=== PATIENT | male | born 1950 | race Caucasian/White ===

== ENCOUNTER 2020-01-28 11:14 | Observation (INO) | payer MEDICARE, OTHER, SELFPAY ==
[2020-01-28] VITALS (14 sets, daily range): BP systolic 150–175; BP diastolic 71–84; PULSE 67–81; RESP 18–25; TEMP 36.6–36.9; O2SAT 92–98; BMI 28.5; BMI 27.6
--- NOTE | 2020-01-28 11:27 | RAD_ITS ---
STUDY: X-RAY CHEST REASON FOR EXAM: Male, 69 years old. WORSENING DYSPNEA SINCE LAST NIGHT. RECENTLY DISCHARGED FROM [facility] SAME SYMPTOMS. FX RIBS, COPD TECHNIQUE: Single PA view of the chest. COMPARISON: None. FINDINGS: EKG electrodes are seen. There is evidence of vascular congestion and CHF with small bilateral pleural effusions and bibasilar atelectasis. Normal size heart. Normal mediastinum and raisa. Normal visualized pulmonary arteries. There is atherosclerotic calcification of the aortic arch with tortuosity. Normal visualized thoracic spine. Normal visualized ribs, clavicles, and shoulders. There is no demonstrated abnormality of the visualized soft tissue structures of the upper abdomen. RAD/Chest 1 View (Portable) IMPRESSION: Findings in keeping with a mild degree of CHF with small bilateral effusions and bibasilar atelectasis. Electronically Signed: Tc Andujar, at 11:57 EDT , Service support ,
--- NOTE | 2020-01-28 11:27 | EKG12_ITS ---
Test Reason : SOB Blood Pressure : / mmHG Vent. Rate : 072 BPM Atrial Rate : 072 BPM P-R Int : 158 ms QRS Dur : 110 ms QT Int : 474 ms P-R-T Axes : 034 005 094 degrees QTc Int : 519 ms Normal sinus rhythm Incomplete left bundle branch block Nonspecific T wave abnormality Prolonged QT Abnormal ECG Confirmed by ELIZABETH VEGA, BARBARA ([id number]), photography editor INOCENCIO IRVING ([id number]) on 02/03/2020 9:11:00 AM Referred By: NEY Confirmed By:CLARENCE JOHNSON MD
--- NOTE | 2020-01-28 11:30 | ED.DCSUM_ITS ---
History of Present Illness Chief Complaint: Shortness of Breath Informant: Patient Onset: Yesterday Current Severity: Mild Maximum Severity: Moderate Narrative: Patient presents via EMS secondary to increased shortness of breath. Patient was discharged from the [facility] 5 days ago after a 1 week stay with broken ribs. He believes he had 3 broken ribs on the left side. He sustained these from falling while getting out of the shower. Patient is currently on Tylenol for pain. He does not wear home oxygen. He states last evening he had increased pain and increased shortness of breath. He went outside to breathe the cool air that seemed to help his symptoms somewhat. He called EMS today when symptoms were not quite back to baseline. He is on dialysis, Sunday, Sunday, and Sunday. He states that he had a full run on Sunday and was on his way to dialysis today. - Past Medical History (1) Dementia Status: Chronic (2) CHF (congestive heart failure) Status: Chronic (3) Hypertension Status: Chronic (4) High cholesterol Status: Chronic (5) H/O heart artery stent Status: Chronic (6) Asthma Status: Chronic (7) Diabetes Status: Chronic (8) Anxiety and depression Status: Chronic (9) Chronic renal failure Status: Chronic (10) Dialysis patient Status: Chronic Past Medical History - Allergies and Home Meds Allergies/Adverse Reactions: Allergies adhesive tape Allergy (Verified 01/28/20 11:18) Rash gabapentin Allergy (Verified 01/28/20 11:18) COULDN'T FUNCTION latex Allergy (Verified 01/28/20 11:18) Rash lisinopril Allergy (Verified 01/28/20 11:18) Anaphylaxis Sulfa (Sulfonamide Antibiotics) Allergy (Verified 01/28/20 11:18) Rash hydrocodone Adverse Reaction (Verified 01/28/20 11:18) Itching niacin Adverse Reaction (Verified 01/28/20 11:18) Itching Primary Care Physician: Sunita Doctor,Out of [NON-STAFF] - Doctors: Nephrology - Dr Deal at [facility] Prior records reviewed: Yes Smoking Status: Former smoker Review of Systems General: Denies: Chills, Fever Eyes: Denies: Visual changes - bilaterally ENT: Denies: Bilateral ear pain Cardiovascular: Reports: Chest pain - Rib pain Respiratory: Reports: Dyspnea, Cough - Minimal cough Gastrointestinal: Denies: Abdominal pain, Nausea, Vomiting, Diarrhea Genitourinary: Denies: Dysuria Musculoskeletal: Reports: Swelling. Denies: Extremity Pain Skin: Denies: Rash Neurological: Denies: Headache Hematologic: Denies: Easy bruising Allergy: Denies: Uticaria Physical Exam Vital Signs/Narrative: Vital Signs Temp Pulse Resp Pulse Ox 01/28/20 11:19 98 01/28/20 11:15 98.4 F 81 25 H 93 Inital Vital Signs reviewed: Yes General: Well nourished, Well developed Head: Normocephalic ENT: Moist mucous membranes Neck: Supple Cardiovascular: Regular rate, Regular rhythm Respiratory: No distress, - - Lung sounds slightly diminished to left base. I do appreciate breath sounds. No crepitus is noted. Abdomen: Soft, Nontender Extremities: Edema - 2-3+ bilateral lower extremity edema, symmetric Skin: Normal color Neurological: Alert, Oriented x3 Psychological: Normal affect Diagnostic/Tx/Re-eval Impressions Chest X-Ray 01/28/20 11:27 IMPRESSION: Findings in keeping with a mild degree of CHF with small bilateral effusions and bibasilar atelectasis. Electronically Signed: Tc Con, at 11:57 EDT , Service support , 01/28/20 11:27 Chest 1 View (Portable) [RAD] Stat Laboratory Results 01/28/20 01/28/20 01/28/20 11:22 11:22 11:22 WBC 6.6 RBC 2.64 L Hgb 8.2 L Hct 25.6 L MCV 97.0 H MCH 31.1 MCHC 32.0 RDW Std Deviation 53.2 H RDW Coeff of Donal 14.9 H Plt Count 206 MPV 10.7 Immature Gran % (Auto) 0.500 Neut % (Auto) 73.3 H Lymph % (Auto) 11.7 L [place] % (Auto) 8.7 Eos % (Auto) 4.4 Baso % (Auto) 1.4 H Absolute Neuts (auto) 4.9 Absolute Lymphs (auto) 0.78 L Nucleated RBC % 0 PT 14.9 INR 1.2 APTT 32.5 Sodium 135 L Potassium 4.6 Chloride 100 Carbon Dioxide 29.0 Anion Gap 6 BUN 29 H Creatinine 6.19 H Estim Creat Clear Calc 9.56 Est GFR (MDRD) Af Amer 12 L Est GFR (MDRD) Non-Af 10 L BUN/Creatinine Ratio 4.7 L Glucose 208 H Calcium 8.8 - EKG Initial EKG Interpretation: Sinus Rhythm - Sinus at 72 with incomplete left bundle branch block. He has mild lateral ST depression that appears stable when compared to September 2016. - Medical Decision Making Blood work does reveal anemia with worse than baseline renal function. My suspicion is that this is secondary to fluid overload as he was due for dialysis today. Patient was ambulated and O2 sat did drop to 86% on room air. Social work is working with the porter sample case through [place] to arrange home oxygen for him. At this time I do not have any criteria to admit him to the hospital. states that she would want him at home and not sent to a correction for rehab. ED Disposition - Plan for ED Patient: Disposition: Home or Assisted Living Diagnosis: Dyspnea Instructions: ED Dyspnea Referrals: [facility] Doctor,Out of [NON-STAFF] -
[2020-01-28 11:36] LABS: Absolute Lymphocyte Count 0.78 X10^3/uL (0.83-4.51); Absolute Neutrophil Count 4.9 X10^3/uL (2.0-7.7); Basophil# 0.09 X10^3/uL; Basophil% 1.4 % (0-1); Eosinophil# 0.29 X10^3/uL; Eosinophils% 4.4 % (0-5); Hematocrit 25.6 % (40-54); Hemoglobin 8.2 g/dL (13.0-16.5); Lymphocyte # 0.78 X10^3/ul (4.0); Lymphocyte % 11.7 % (19-41); Mean Corpuscular Hgb 31.1 pg (27.0-32.0); Mean Platelet Vol. 10.7 fl (6.2-12.0); Monocyte# 0.58 X10^3/uL; Monocyte% 8.7 % (0-10); NRBC Flagged by Analyzer 0 % (0-5); Neutrophil # 4.87 X10^3/uL (2.7-7.7); Neutrophil % 73.3 % (47-70); Platelet Count 206 K/mm3 (150-450); RBC Distribution Width CV 14.9 % (11.6-14.6); RBC Distribution Width SD 53.2 fl (35.1-43.9); Red Blood Count 2.64 M/mm3 (4.6-6.2); White Blood Count 6.6 K/mm3 (4.4-11.0)
[2020-01-28 11:43] LABS: International Normalized Ratio 1.2; Prothrombin Time (Protime)PT. 14.9 SECONDS (11.7-14.9)
[2020-01-28 11:44] LABS: Partial Thromboplast Time 32.5 Seconds (24.1-36.2)
[2020-01-28 11:49] LABS: Anion Gap 6 (5-15); BUN 29 mg/dL (7-18); BUN/Creat Ratio 4.7 RATIO (10-20); Calcium,Total 8.8 mg/dL (8.5-10.1); Chloride 100 mmol/L (98-107); Creatinine, Serum 6.19 mg/dL (0.70-1.30); EST Glomerular Filtration Rate 10 mL/min (>60); Est Glom Filt Rate - Afr Amer 12 mL/min (>60); Estimated Creatinine Clearance 9.56 ml/min; Glucose 208 mg/dL (74-106); Potassium 4.6 mmol/L (3.5-5.1); Sodium Level 135 mmol/L (136-145)
--- NOTE | 2020-01-28 13:13 | ED.RN ---
SPOKE TO Damian JOHNSTON'S PER PHONE CALL. STATES PT HAS HAD 3 FALLS IN PAST 24 HRS, ALSO MORE DYSPNEA THAT BASELINE. STATES SHE HAS HOME HEALTH IN PLACE BUT THEY CAN'T COME OUT BECAUSE OF THE [place] VIRUS. REQUESTS HOME O2, STATES PT BECOMES SHORT OF BREATH WITH ANY EXERTION, FEELS THIS CONTRIBUTES TO FALLS. AWARE.
--- NOTE | 2020-01-28 14:00 | CM.ED ---
SOCIAL WORK INFORMANT: DR. BREWSTER REASON FOR REFERRAL: OXYGEN SET UP SPOKE WITH PATIENT AND . WANTING PATIENT TESTED FOR HOME OXYGEN SHE REPORTS PATIENT'S O2 DROPS TO THE LOW 80'S WITH AMBULATION. PROVIDED THIS WORKER WITH CORE FINISHER THROUGH [facility]'S CONTACT INFORMATION- CLARISSA [phone]. COLLABORATION WITH DR. BREWSTER AND NURSE, ZION. ZION TO COMPLETE O2 TESTING. CALL TO PATIENT'S [facility] AERONAUTICAL PROJECT ENGINEER, CLARISSA. UPDATED ON PATIENT'S ED VISIT AND POSSIBLE HOME O2 NEEDS. CLARISSA REPORTS WILL BE IN CONTACT WITH THIS WORKER AND WILL UPDATE O2 [facility] COORDINATOR. AWAITING CALL BACK AT THIS TIME. Delicia FARIAS, CHILD CARE COOK, DESIGNATED BROKER.
--- NOTE | 2020-01-28 14:25 | CM.ED ---
SOCIAL WORK RECEIVED CALL FROM JANUARY, [place] O2 COORDINATOR. PER JANUARY, WILL FAX OVER VA O2 AGREEMENT FOR TEMPORARY SCRIPT. JANUARY STATES SHOULD RECEIVE FORM IN 10 MINUTES. REQUESTING FORM BE COMPLETED AND FAXED BACK. Delicia FARIAS MSW, SENIOR VICE PRESIDENT.
--- NOTE | 2020-01-28 14:56 | CM.ED ---
SOCIAL WORK VA O2 FORMS HAVE NOT BEEN RECEIVED. CALL TO VA O2 COORDINATOR, VARUN [id number]. LEFT VOICEMAIL. AWAITING CALL BACK. Delicia FARIAS, SCORER HELPER, SEARCH ENGINE OPTIMIZATION SPECIALIST.
--- NOTE | 2020-01-28 15:32 | ED.RN ---
PT AMBULATED ON 2L O2, SPO2 93% DURING AMBULATION
--- NOTE | 2020-01-28 15:35 | CM.ED ---
SOCIAL WORK O2 FORMS FOR THE [facility] RECEIVED, COMPLETED, SIGNED BY PATIENT AND FAXED BACK TO VARUN AT THE [facility]. Delicia FARIAS MSW, MUTUAL FUND ANALYST.
--- NOTE | 2020-01-28 16:12 | NURSING ---
CALLED [facility]EN[facility], TALKED TO ALLA. HE WILL FORWARD THE INFO TO THE BED COORDINATOR.
--- NOTE | 2020-01-28 16:42 | ED.RN ---
PER PHONE CALL FROM JEAN PIERRE AT [facility], [place] TO ADMIT PT TO [facility] FOR OBSERVATION.
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
--- NOTE | 2020-01-28 16:56 | NURSING ---
PCU OBS ASHELFAH DYSPNEA, HYPOXIA
--- NOTE | 2020-01-28 16:57 | CM.ED ---
SOCIAL WORK RECEIVED CALL BACK FROM [facility] [place]. PER [place] POLICY WITH O2 VENDOR- [facility] ALL O2 NEEDS MUST BE SUBMITTED BEFORE 2PM. WILL BE UNABLE TO SET UP HOME O2 THIS DAY. [place] WILL NOT COVER ANOTHER VENDOR. UPDATED DR. BYRNE. PATIENT TO BE ADMITTED OBSERVATION. THIS WORKER COORDINATED WITH [facility] [place] AND [place] O2 COORDINATORS TO HAVE PORTABLE TANK DELIVERED TO HOSPITAL TOMORROW. WAS UPDATED BY NURSING AND INFORMED NURSE SHE HAS BEEN CONTACTED BY [facility] AND HOME O2 TO BE SET UP TOMORROW BEFORE NOON. CALL TO JANUARY ([phone] [phone]) AND PROVIDED CONTACT NUMBER FOR PCU AND REQUESTED UNIT BE CONTACTED TOMORROW TO UPDATE WHEN PORTABLE TANK WILL BE DELIVERED. Delicia FARIAS, RESEARCH PROGRAM INTERN, SALES OFFICE ADMINISTRATOR.
--- NOTE | 2020-01-28 17:04 | NURSING ---
1640 FAXED CHART TO JACKELINE SAENZ IT WENT THROUGH
--- NOTE | 2020-01-28 17:13 | ED.RN ---
PCU NOTIFIED PT MISSED DIALYSIS TODAY.
[2020-01-28] MEDS: Furosemide 100 MG/10 ML Vial 60 MG IV (18:12)
[2020-01-28] MEDS: 0.9% Saline Lock 10 ML Syringe IV (18:12)
[2020-01-28 18:21] LABS: Bedside Glucose 206 mg/dL (70-110)
[2020-01-28] MEDS: Epoetin Alfa epbx 10,000 UNITS/ML 6000 UNIT IV (20:21)
[2020-01-28] MEDS: MELATONIN 3 MG TABLET PO (21:54)
[2020-01-28] MEDS: Atorvastatin Calcium 80 MG Tablet PO (21:54)
[2020-01-28] MEDS: Docusate Sodium 100 MG Capsule PO (21:54)
[2020-01-28] MEDS: Insulin Lispro 100 UNIT/ML INSULN.PEN SC (21:55)
[2020-01-28] MEDS: Heparin Injection (Vial) 5,000 UNIT/ML VIAL 5000 UNIT SC (21:55)
[2020-01-28] MEDS: Memantine Hydrochloride 10 MG Tablet PO (22:04)
[2020-01-28 22:11] LABS: Bedside Glucose 173 mg/dL (70-110)
[2020-01-29 02:58] VITALS: PULSE 78
[2020-01-29 05:30] VITALS: BP 176/82; PULSE 75; RESP 18; TEMP 36.6; O2SAT 95
[2020-01-29] MEDS: Carvedilol 25 MG Tablet PO (05:44)
[2020-01-29] MEDS: Acetaminophen 325 MG Tablet 650 MG PO (05:44)
[2020-01-29 05:45] VITALS: O2SAT 87
[2020-01-29 06:06] LABS: Absolute Lymphocyte Count 0.92 X10^3/uL (0.83-4.51); Absolute Neutrophil Count 4.6 X10^3/uL (2.0-7.7); Basophil# 0.08 X10^3/uL; Basophil% 1.2 % (0-1); Eosinophil# 0.39 X10^3/uL; Eosinophils% 5.8 % (0-5); Hematocrit 25.9 % (40-54); Hemoglobin 8.3 g/dL (13.0-16.5); Lymphocyte # 0.92 X10^3/ul (4.0); Lymphocyte % 13.6 % (19-41); Mean Corpuscular Hgb 30.9 pg (27.0-32.0); Mean Corpuscular Volume 96.3 fL (80-94); Mean Platelet Vol. 10.8 fl (6.2-12.0); Monocyte# 0.69 X10^3/uL; Monocyte% 10.2 % (0-10); NRBC Flagged by Analyzer 0 % (0-5); Neutrophil # 4.64 X10^3/uL (2.7-7.7); Neutrophil % 68.8 % (47-70); Platelet Count 209 K/mm3 (150-450); RBC Distribution Width CV 14.7 % (11.6-14.6); RBC Distribution Width SD 51.4 fl (35.1-43.9); Red Blood Count 2.69 M/mm3 (4.6-6.2); White Blood Count 6.8 K/mm3 (4.4-11.0)
[2020-01-29 06:28] LABS: Anion Gap 8 (5-15); BUN 18 mg/dL (7-18); BUN/Creat Ratio 4.4 RATIO (10-20); Calcium,Total 8.1 mg/dL (8.5-10.1); Chloride 97 mmol/L (98-107); Creatinine, Serum 4.08 mg/dL (0.70-1.30); EST Glomerular Filtration Rate 16 mL/min (>60); Est Glom Filt Rate - Afr Amer 19 mL/min (>60); Estimated Creatinine Clearance 14.51 ml/min; Glucose 166 mg/dL (74-106); Potassium 3.5 mmol/L (3.5-5.1); Sodium Level 134 mmol/L (136-145)
[2020-01-29] MEDS: Insulin Lispro 100 UNIT/ML INSULN.PEN SC ×2 (06:46→12:12)
[2020-01-29 06:51] LABS: Bedside Glucose 159 mg/dL (70-110)
[2020-01-29 07:28] VITALS: O2SAT 95
[2020-01-29] MEDS: Aspirin E.C. 81 MG Tablet PO (07:51)
[2020-01-29 08:00] VITALS: PULSE 75
[2020-01-29] MEDS: SEVELAMER CARBONATE 800 MG TABLET PO ×2 (08:11→13:55)
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
--- NOTE | 2020-01-29 09:05 | CASEMGMT ---
Call to Martha at [facility] and she states that everything is set up for pt to get oxygen today and states she has all the paperwork that she needs and states everything has been faxed to [facility]. Call to [facility] and they state that delivery for portable tank is set up for between [phone] today. Charge nurse and physician updated at this time, voice understanding. Arturo VILLELA CM
--- NOTE | 2020-01-29 09:54 | DCINST_ITS ---
- Discharge Diagnoses Current Active Problems: Current Active and Chronic Problems Hyperlipidemia (Chronic) Coronary artery disease (Chronic) Chronic diastolic CHF (congestive heart failure) (Chronic) End stage renal disease on dialysis (Chronic) Type 2 diabetes mellitus (Chronic) You will use the following diet at home:: Cardiac - 2-3 g sodium / day, 1800 cc fluid / day., Renal (restricted protein/sodium) Your food should be the consistency of: Regular Your liquids should be the consistency of: Regular/Thin Discharge Activity: Return to Normal Activity Instructions: ED Dyspnea Allergies/Adverse Reactions: Allergies adhesive tape Allergy (Verified 01/28/20 11:18) Rash gabapentin Allergy (Verified 01/28/20 11:18) COULDN'T FUNCTION latex Allergy (Verified 01/28/20 11:18) Rash lisinopril Allergy (Verified 01/28/20 11:18) Anaphylaxis Sulfa (Sulfonamide Antibiotics) Allergy (Verified 01/28/20 11:18) Rash hydrocodone Adverse Reaction (Verified 01/28/20 11:18) Itching niacin Adverse Reaction (Verified 01/28/20 11:18) Itching Medications to take at Discharge Aspirin E.C. [Ecotrin] 81 mg PO DAILY@0800 10/06/15 Atorvastatin Calcium [Lipitor] 80 mg PO QHS 10/06/15 Carvedilol [Coreg (Beta Addie)] 25 mg PO BIDAC 10/06/15 Finasteride [Proscar] 5 mg PO DAILY 10/06/15 Fluoxetine [Prozac] 60 mg PO DAILY 10/06/15 Insulin Glargine,Hum.rec.anlog [Lantus] 10 unit SC QHS 10/06/15 Multivitamin [Daily Multiple Vitamin] 1 each PO DAILY 10/06/15 Nitroglycerin (INPATIENT USE) [Nitrostat] 0.4 mg SUBLINGUAL Q5M PRN 10/06/15 Docusate Sodium [Colace] 100 mg PO BID 05/16/16 Isosorbide Mononitrate [Imdur] 120 mg PO DAILY 05/16/16 Omeprazole [Prilosec] 30 mg PO DAILY 05/16/16 Cholecalciferol (VIT D3) [Vitamin D3] 1,000 unit PO DAILY 08/04/16 Amlodipine [Norvasc] 5 mg PO DAILY 01/28/20 Bupropion HCl [Wellbutrin Sr] 100 mg PO DAILY 01/28/20 Diclofenac/Silicone, Adhesive [Solaravix 3% Gel Kit] 1 ea TP BID 01/28/20 Fluticasone Propionate [24 Hour Allergy] 1 spr NASAL DAILY 01/28/20 Insulin Regular, Human [Novolin R] See Protocol SQ TID 01/28/20 Loratadine [Claritin] 10 mg PO QODAY 01/28/20 Losartan Potassium 100 mg PO DAILY 01/28/20 Melatonin 3 mg PO QHS 01/28/20 Memantine HCl 10 mg PO BID 01/28/20 Sevelamer Carbonate [Renvela] 800 mg PO ACHS 01/28/20 Primary Care Physician: [facility] Doctor,Out of [NON-STAFF] - Please follow up with your Primary Care Physician in: 1-2 weeks Test Results: Test results from this visit will be discussed in further detail at your follow- up appointment, if applicable. Please Follow Up With: Dialysis, prior When: keep prior schedule. Proposed Discharge Date: 01/29/20
[2020-01-29] MEDS: Loratadine 10 MG Tablet PO (10:24)
[2020-01-29] MEDS: Docusate Sodium 100 MG Capsule PO (10:24)
[2020-01-29] MEDS: Losartan Potassium 100 MG Tablet PO (10:25)
[2020-01-29] MEDS: Pantoprazole Sodium 40 MG Tablet PO (10:26)
[2020-01-29] MEDS: Memantine Hydrochloride 10 MG Tablet PO (10:26)
[2020-01-29] MEDS: amLODIPine 5 MG Tablet PO (10:26)
[2020-01-29] MEDS: Finasteride 5 MG Tablet PO (10:26)
[2020-01-29] MEDS: buPROPion (SR) 100 MG TABLET.SA PO (10:27)
[2020-01-29] MEDS: FLUoxetine 20 MG Capsule 60 MG PO (10:27)
[2020-01-29] MEDS: Glucerna Shake 120 ML LIQUID PO (10:32)
--- NOTE | 2020-01-29 12:11 | CASEMGMT ---
Addendum entered by Diana Anton 01/29/20 14:11: S. William MACIAS spoke with pt on the phone and pt now states that drives but he will have to see if she will come get him. George VILLELA then spoke with via phone and was able to obtain 'Jody' number and states 'she is a [facility] advocate.' did tell George that oxygen had already been delivered to home. This RN CM placed a call to Aan at this time and per Ana, she is a home care PA thru the [place]. Ana states that she knows oxygen was to be delivered and that pt was supposed to go to [place] [facility] yesterday prior to dialysis d/t SOB but that pt went to dialysis instead and then was sent here. Per Ana, pt's can drive and so can their son. Ana updated that O2 was delivered to home and that could just bring a portable tank for pt at discharge. Ana states she will call at this time and make sure that they get a ride for pt to be discharged from the hospital. Ana then called back and stated that pt's had 'found a friend to come pick him up' and they will bring a tank. George VILLELA updated on all, voices understanding. Ana's contact info: [phone]. Arturo VILLELA CM Original Note: Pt states that he has no ride home at this time. Pt states that does not drive. Pt states [facility] uses [facility] but does not have contact information for them at this time and he does not know his provider at [facility]. Pt states 'Ana at the [facility] usually sets it up for me.' [facility] [place]. Call to [facility] and pt is on pact team 9 with Janiya Griffin as provider and Eliana is her RN. Message left with eliana at this time in regards to calling this RN SHAHID back. Arturo VILLELA CM
[2020-01-29 12:20] LABS: Bedside Glucose 206 mg/dL (70-110)
--- NOTE | 2020-01-29 12:52 | DS.PCM_ITS ---
<Holden Shin - Last Filed: 01/29/20 12:52> Discharge Date and Diagnosis Date of Admission: 01/28/20 Date of Discharge: 01/29/20 - Primary Discharge Diagnosis Acute hypoxic respiratory failure secondary to acute on chronic diastolic congestive heart failure, chronic bilateral pleural effusions End-stage renal disease Anemia of chronic disease History of CAD with prior stents History of moderate MR Type 2 diabetes - Secondary Discharge Diagnosis Chronic Problems Hyperlipidemia (Chronic) Coronary artery disease (Chronic) Chronic diastolic CHF (congestive heart failure) (Chronic) End stage renal disease on dialysis (Chronic) Type 2 diabetes mellitus (Chronic) Dementia (Chronic) Hypertension (Chronic) H/O heart artery stent (Chronic) Anxiety and depression (Chronic) Hospital Course and Treatment Imaging Results: RAD/Chest 1 View (Portable) IMPRESSION: Findings in keeping with a mild degree of CHF with small bilateral effusions and bibasilar atelectasis. Operations: None Procedures: None Summary of Care Provided: Hospital course: The patient is a 69 year old M with past medical history as above most notably for diastolic congestive heart failure, ESRD on hemodialysis, recent admission for broken ribs secondary to a fall, who presented to the ER with increased shortness of breath, increased difficulty breathing when lying flat. In the ER his resting pulse ox was 86% on room air, he does not require home oxygen normally, though [facility] and had not been able to to this point. Chest x-ray showed chronic bilateral pleural effusions, and he had a markedly elevated beta natriuretic peptide. He was felt to have acute on chronic diastolic congestive heart failure. He was admitted to the hospital and treated with dialysis and IV lasix. The following day he had no further shortness of breath. The patient continued to have low pulse ox at 87%. As he is active at home and in the community he will require oxygen going forward in order to maintain adequate saturations-this is been ordered for him. The patient will need to continue his usual dialysis sessions. He was discharged home in stable condition. He will need follow-up with his PCP in 1 to 2 weeks. This patient was seen by Holden Shin PA-C under the supervision of Doctor Ortiz. [] - Physical Exam Vitals/I&O's: Vital Signs Temp Pulse Resp BP Pulse Ox 97.8 F 75 18 176/82 H 95 01/29/20 05:30 01/29/20 08:00 01/29/20 05:30 01/29/20 05:30 01/29/20 07:28 Oxygen Flow Rate (L/min) 2 Oxygen Delivery Method Nasal Cannula Weight: 160 lb 11.472 oz Body Mass Index (BMI) 27.6 Finger Stick Blood Glucose 351 Intake and Output for Last 24 Hours 01/27/20 01/28/20 01/29/20 23:59 23:59 23:59 Intake Total 100 / 100 Balance 100 / 100 General: Alert, Oriented x3, Cooperative HEENT: Atraumatic, PERRLA, EOMI, Normocephalic Neck: Supple, No JVD, Negative Carotid Bruits Lungs: Clear to auscultation, Normal air movement Cardiovascular: Regular rate, No murmurs Abdomen: Bowel Sounds Present, Soft, Non Tender Extremities: No edema, Capillary Refill Less than 3 Seconds Skin: No rashes, No breakdown Musculoskeletal: No Tenderness to Palpation of Joints or Extremities Neurological: Cranial nerves II-XII grossly intact Psych/Mental Status: Normal Affect, Appropriate, Alert and oriented to time, place, person, mood and affect Laboratory Results 01/28/20 11:22: Troponin I 0.021 01/28/20 11:22: B-Natriuretic Peptide 2820.5 H 01/28/20 18:12: POC Glucose 206 H 01/28/20 21:44: POC Glucose 173 H 01/29/20 05:38: WBC 6.8, RBC 2.69 L, Hgb 8.3 L, Hct 25.9 L, MCV 96.3 H, MCH 30.9, MCHC 32.0, RDW Std Deviation 51.4 H, RDW Coeff of Donal 14.7 H, Plt Count 209, MPV 10.8, Immature Gran % (Auto) 0.400, Neut % (Auto) 68.8, Lymph % (Auto) 13.6 L, [place] % (Auto) 10.2 H, Eos % (Auto) 5.8 H, Baso % (Auto) 1.2 H, Absolute Neuts (auto) 4.6, Absolute Lymphs (auto) 0.92, Nucleated RBC % 0 01/29/20 05:38: Sodium 134 L, Potassium 3.5, Chloride 97 L, Carbon Dioxide 29.0, Anion Gap 8, BUN 18, Creatinine 4.08 H, Estim Creat Clear Calc 14.51, Est GFR (MDRD) Af Amer 19 L, Est GFR (MDRD) Non-Af 16 L, BUN/Creatinine Ratio 4.4 L, Glucose 166 H, Calcium 8.1 L 01/29/20 06:44: POC Glucose 159 H 01/29/20 12:09: POC Glucose 206 H Current Medications Acetaminophen (Tylenol) 650 mg PO Q6H PRN PRN PRN Reason: Pain Score 1-10/Temp > 100.7 F Last Admin: 01/29/20 05:44 Dose: 650 mg Documented by: Albuterol Sulfate (Ventolin Aerosols) 2.5 mg INHALATION Q4H PRN PRN PRN Reason: Shortness of breath, wheezing Amlodipine Besylate (Norvasc) 5 mg PO DAILY [facility] Last Admin: 01/29/20 10:26 Dose: 5 mg Documented by: Aspirin (Ecotrin) 81 mg PO DAILY@0800 [facility] Last Admin: 01/29/20 07:51 Dose: 81 mg Documented by: Atorvastatin Calcium (Lipitor) 80 mg PO QHS [facility] Last Admin: 01/28/20 21:54 Dose: 80 mg Documented by: Bupropion HCl (Wellbutrin Sr (100mg Tablets)) 100 mg PO DAILY [facility] Last Admin: 01/29/20 10:27 Dose: 100 mg Documented by: Carvedilol (Coreg) 25 mg PO BIDAC [facility] Last Admin: 01/29/20 05:44 Dose: 25 mg Documented by: Dextrose (D50w Syringe) 0 gm IV X1 PRN; Protocol PRN Reason: Hypoglycemia Docusate Sodium (Colace) 100 mg PO BID [facility] Last Admin: 01/29/20 10:24 Dose: 100 mg Documented by: Finasteride (Proscar) 5 mg PO DAILY [facility] Last Admin: 01/29/20 10:26 Dose: 5 mg Documented by: Fluoxetine HCl (Prozac) 60 mg PO DAILY [facility] Last Admin: 01/29/20 10:27 Dose: 60 mg Documented by: Glucagon () 1 mg IM .X1 PRN PRN Reason: Hypoglycemia Heparin Sodium (Porcine) (Heparin Na) 5,000 unit SC Q12 [facility] Last Admin: 01/29/20 10:32 Dose: Not Given Documented by: Sodium Chloride () 500 mls @ 15 mls/hr IV PRN PRN PRN Reason: Blood Transfusion Sodium Chloride () 250 mls @ 15 mls/hr IV .[id number] PRN PRN Reason: Saline Flush Sodium Chloride () 250 mls @ 15 mls/hr IV .[id number] PRN PRN Reason: Additional IVPB Infusion Insulin Glargine (Lantus ([facility])) 10 units SC QHS [facility] Last Admin: 01/28/20 21:55 Dose: 10 u Documented by: Insulin Human Lispro (Humalog Kwikpen ([facility])) 0 unit SC [facility]; Protocol Last Admin: 01/29/20 12:12 Dose: 2 u Documented by: Isosorbide Mononitrate (Imdur) 120 mg PO DAILY [facility] Last Admin: 01/29/20 10:25 Dose: 120 mg Documented by: Loratadine (Claritin) 10 mg PO QODAY [facility] Last Admin: 01/29/20 10:24 Dose: 10 mg Documented by: Losartan Potassium (Cozaar) 100 mg PO DAILY [facility] Last Admin: 01/29/20 10:25 Dose: 100 mg Documented by: Melatonin (Melatonin) 3 mg PO QHS [facility] Last Admin: 01/28/20 21:54 Dose: 3 mg Documented by: Memantine (Namenda) 10 mg PO BID [facility] Last Admin: 01/29/20 10:26 Dose: 10 mg Documented by: Nutritional Formula (Lactose Free) (Glucerna Shake) 120 ml PO 4X/DAY [facility] Last Admin: 01/29/20 10:32 Dose: 120 ml Documented by: Ondansetron HCl (Zofran) 4 mg IV Q8H PRN PRN PRN Reason: NAUSEA/VOMITING Pantoprazole Sodium (Protonix) 40 mg PO DAILY [facility] Last Admin: 01/29/20 10:26 Dose: 40 mg Documented by: Sevelamer Carbonate (Renvela) 800 mg PO [facility] Last Admin: 01/29/20 08:11 Dose: 800 mg Documented by: Sodium Chloride () 10 - 40 ml IV UD PRN PRN Reason: SALINE FLUSH Last Admin: 01/28/20 18:12 Dose: 10 ml Documented by: Zolpidem Tartrate (Ambien (Generic)) 5 mg PO QHS PRN PRN PRN Reason: INSOMNIA Discharge Diet: Low fat/ Low Cholesterol, 2000 mg Sodium Diet, Renal Diet Discharge Activity: Return to Normal Activity Home Medications: Medications to take at Discharge Aspirin E.C. [Ecotrin] 81 mg PO DAILY@0800 10/06/15 Atorvastatin Calcium [Lipitor] 80 mg PO QHS 10/06/15 Carvedilol [Coreg (Beta Addie)] 25 mg PO BIDAC 10/06/15 Finasteride [Proscar] 5 mg PO DAILY 10/06/15 Fluoxetine [Prozac] 60 mg PO DAILY 10/06/15 Insulin Glargine,Hum.rec.anlog [Lantus] 10 unit SC QHS 10/06/15 Multivitamin [Daily Multiple Vitamin] 1 each PO DAILY 10/06/15 Nitroglycerin (INPATIENT USE) [Nitrostat] 0.4 mg SUBLINGUAL Q5M PRN 10/06/15 Docusate Sodium [Colace] 100 mg PO BID 05/16/16 Isosorbide Mononitrate [Imdur] 120 mg PO DAILY 05/16/16 Omeprazole [Prilosec] 30 mg PO DAILY 05/16/16 Cholecalciferol (VIT D3) [Vitamin D3] 1,000 unit PO DAILY 08/04/16 Amlodipine [Norvasc] 5 mg PO DAILY 01/28/20 Bupropion HCl [Wellbutrin Sr] 100 mg PO DAILY 01/28/20 Diclofenac/Silicone, Adhesive [Solaravix 3% Gel Kit] 1 ea TP BID 01/28/20 Fluticasone Propionate [24 Hour Allergy] 1 spr NASAL DAILY 01/28/20 Insulin Regular, Human [Novolin R] See Protocol SQ TID 01/28/20 Loratadine [Claritin] 10 mg PO QODAY 01/28/20 Losartan Potassium 100 mg PO DAILY 01/28/20 Melatonin 3 mg PO QHS 01/28/20 Memantine HCl 10 mg PO BID 01/28/20 Sevelamer Carbonate [Renvela] 800 mg PO ACHS 01/28/20 Primary Care Physician: [facility] Doctor,Out of [NON-STAFF] - Please follow up with your Primary Care Physician in: 1-2 weeks Please Follow Up With: Dialysis, prior When: keep prior schedule. Patient Instructions: ED Dyspnea Disposition: Home Minutes spent on discharge:: 35 Patient Condition:: Stable Medical Necessity - Tobacco Use Smoking Status: Former smoker Meaningful Use Info Meaningful Use Diagnoses (Choose all that apply): None applicable <Dai Ortiz - Last Filed: 01/29/20 13:51> Discharge Date and Diagnosis - Secondary Discharge Diagnosis Chronic Problems Hyperlipidemia (Chronic) Coronary artery disease (Chronic) Chronic diastolic CHF (congestive heart failure) (Chronic) End stage renal disease on dialysis (Chronic) Type 2 diabetes mellitus (Chronic) Dementia (Chronic) Hypertension (Chronic) H/O heart artery stent (Chronic) Anxiety and depression (Chronic) Hospital Course and Treatment Summary of Care Provided: This patient was seen in conjunction with BABS Carrera. I have independently interviewed and examined the patient and reviewed pertinent historical, laboratory, and other data. Please refer to BABS Carrera note for his patient's presentation, findings, and recommendations. I have reviewed and his note and concur with his documentation 69-year-old male with past medical history of chronic diastolic CHF who recently was discharged from [facility] days prior. He had gone to the hospital for broken ribs secondary to fall. During the hospital stay, he was reportedly tested for COVID?19 and was negative. He has been progressively short of breath. He has chronic pleural effusions and was to undergo dialysis. He missed dialysis because he was short of breath. Patient denied any weight gain but has chronic lower extremity swelling. In the past he had problems [facility]. He did qualify for oxygen at discharge. Physical Exam: Gen: Comfortable, not on oxygen at rest, not pale, not jaundiced CVS:HS I +II, regular, no murmurs RESP: Diminished at lung bases GI: BS present and normal, soft, nontender, no palpable organs EXT:Bilateral pedal edema +2 - Physical Exam Vitals/I&O's: Vital Signs Temp Pulse Resp BP Pulse Ox 97.8 F 75 18 176/82 H 95 01/29/20 05:30 01/29/20 08:00 01/29/20 05:30 01/29/20 05:30 01/29/20 07:28 Oxygen Flow Rate (L/min) 2 Oxygen Delivery Method Nasal Cannula Weight: 72.9 kg Body Mass Index (BMI) 27.6 Finger Stick Blood Glucose 351 Intake and Output for Last 24 Hours 01/27/20 01/28/20 01/29/20 23:59 23:59 23:59 Intake Total 100 / 100 Balance 100 / 100 Laboratory Results 01/28/20 11:22: Troponin I 0.021 01/28/20 11:22: B-Natriuretic Peptide 2820.5 H 01/28/20 18:12: POC Glucose 206 H 01/28/20 21:44: POC Glucose 173 H 01/29/20 05:38: WBC 6.8, RBC 2.69 L, Hgb 8.3 L, Hct 25.9 L, MCV 96.3 H, MCH 30.9, MCHC 32.0, RDW Std Deviation 51.4 H, RDW Coeff of Donal 14.7 H, Plt Count 209, MPV 10.8, Immature Gran % (Auto) 0.400, Neut % (Auto) 68.8, Lymph % (Auto) 13.6 L, [place] % (Auto) 10.2 H, Eos % (Auto) 5.8 H, Baso % (Auto) 1.2 H, Absolute Neuts (auto) 4.6, Absolute Lymphs (auto) 0.92, Nucleated RBC % 0 01/29/20 05:38: Sodium 134 L, Potassium 3.5, Chloride 97 L, Carbon Dioxide 29.0, Anion Gap 8, BUN 18, Creatinine 4.08 H, Estim Creat Clear Calc 14.51, Est GFR (MDRD) Af Amer 19 L, Est GFR (MDRD) Non-Af 16 L, BUN/Creatinine Ratio 4.4 L, Glucose 166 H, Calcium 8.1 L 01/29/20 06:44: POC Glucose 159 H 01/29/20 12:09: POC Glucose 206 H Current Medications Acetaminophen (Tylenol) 650 mg PO Q6H PRN PRN PRN Reason: Pain Score 1-10/Temp > 100.7 F Last Admin: 01/29/20 05:44 Dose: 650 mg Documented by: Albuterol Sulfate (Ventolin Aerosols) 2.5 mg INHALATION Q4H PRN PRN PRN Reason: Shortness of breath, wheezing Amlodipine Besylate (Norvasc) 5 mg PO DAILY [facility] Last Admin: 01/29/20 10:26 Dose: 5 mg Documented by: Aspirin (Ecotrin) 81 mg PO DAILY@0800 [facility] Last Admin: 01/29/20 07:51 Dose: 81 mg Documented by: Atorvastatin Calcium (Lipitor) 80 mg PO QHS [facility] Last Admin: 01/28/20 21:54 Dose: 80 mg Documented by: Bupropion HCl (Wellbutrin Sr (100mg Tablets)) 100 mg PO DAILY [facility] Last Admin: 01/29/20 10:27 Dose: 100 mg Documented by: Carvedilol (Coreg) 25 mg PO BIDAC [facility] Last Admin: 01/29/20 05:44 Dose: 25 mg Documented by: Dextrose (D50w Syringe) 0 gm IV X1 PRN; Protocol PRN Reason: Hypoglycemia Docusate Sodium (Colace) 100 mg PO BID [facility] Last Admin: 01/29/20 10:24 Dose: 100 mg Documented by: Finasteride (Proscar) 5 mg PO DAILY [facility] Last Admin: 01/29/20 10:26 Dose: 5 mg Documented by: Fluoxetine HCl (Prozac) 60 mg PO DAILY [facility] Last Admin: 01/29/20 10:27 Dose: 60 mg Documented by: Glucagon () 1 mg IM .X1 PRN PRN Reason: Hypoglycemia Heparin Sodium (Porcine) (Heparin Na) 5,000 unit SC Q12 [facility] Last Admin: 01/29/20 10:32 Dose: Not Given Documented by: Sodium Chloride () 500 mls @ 15 mls/hr IV PRN PRN PRN Reason: Blood Transfusion Sodium Chloride () 250 mls @ 15 mls/hr IV .[id number] PRN PRN Reason: Saline Flush Sodium Chloride () 250 mls @ 15 mls/hr IV .[id number] PRN PRN Reason: Additional IVPB Infusion Insulin Glargine (Lantus ([facility])) 10 units SC QHS [facility] Last Admin: 01/28/20 21:55 Dose: 10 u Documented by: Insulin Human Lispro (Humalog Kwikpen ([facility])) 0 unit SC ACHS [facility]; Protocol Last Admin: 01/29/20 12:12 Dose: 2 u Documented by: Isosorbide Mononitrate (Imdur) 120 mg PO DAILY [facility] Last Admin: 01/29/20 10:25 Dose: 120 mg Documented by: Loratadine (Claritin) 10 mg PO QODAY [facility] Last Admin: 01/29/20 10:24 Dose: 10 mg Documented by: Losartan Potassium (Cozaar) 100 mg PO DAILY [facility] Last Admin: 01/29/20 10:25 Dose: 100 mg Documented by: Melatonin (Melatonin) 3 mg PO QHS [facility] Last Admin: 01/28/20 21:54 Dose: 3 mg Documented by: Memantine (Namenda) 10 mg PO BID [facility] Last Admin: 01/29/20 10:26 Dose: 10 mg Documented by: Nutritional Formula (Lactose Free) (Glucerna Shake) 120 ml PO 4X/DAY [facility] Last Admin: 01/29/20 10:32 Dose: 120 ml Documented by: Ondansetron HCl (Zofran) 4 mg IV Q8H PRN PRN PRN Reason: NAUSEA/VOMITING Pantoprazole Sodium (Protonix) 40 mg PO DAILY [facility] Last Admin: 01/29/20 10:26 Dose: 40 mg Documented by: Sevelamer Carbonate (Renvela) 800 mg PO [facility] Last Admin: 01/29/20 08:11 Dose: 800 mg Documented by: Sodium Chloride () 10 - 40 ml IV UD PRN PRN Reason: SALINE FLUSH Last Admin: 01/28/20 18:12 Dose: 10 ml Documented by: Zolpidem Tartrate (Ambien (Generic)) 5 mg PO QHS PRN PRN PRN Reason: INSOMNIA OBSV E&M: 88462 Observation care discharge
[2020-01-29 13:43] VITALS: BP 153/57; PULSE 70; RESP 16; TEMP 36.8; O2SAT 95
== END 2020-01-29 09:54 | disposition home or self-care (01) ==
LOC: ED 15:28 → PCU 17:12
PROVIDERS: Admitting Provider Hospitalist; Emergency Provider Emergency Medicine; Visit Provider Internal Medicine
DX: J96.01 Acute respiratory failure with hypoxia (principal); I50.33 Acute on chronic diastolic (congestive) heart failure; N18.6 End stage renal disease; I25.10 Atherosclerotic heart disease of native coronary artery without angina pectoris; I13.2 Hypertensive heart and chronic kidney disease with heart failure and with stage 5 chronic kidney disease, or end stage renal disease; E11.22 Type 2 diabetes mellitus with diabetic chronic kidney disease; F03.90 Unspecified dementia, unspecified severity, without behavioral disturbance, psychotic disturbance, mood disturbance, and anxiety; F41.9 Anxiety disorder, unspecified; F32.9 Major depressive disorder, single episode, unspecified; J44.9 Chronic obstructive pulmonary disease, unspecified; F43.10 Post-traumatic stress disorder, unspecified; E11.40 Type 2 diabetes mellitus with diabetic neuropathy, unspecified; N40.0 Benign prostatic hyperplasia without lower urinary tract symptoms; D63.1 Anemia in chronic kidney disease; K21.9 Gastro-esophageal reflux disease without esophagitis; E78.5 Hyperlipidemia, unspecified; Z79.899 Other long term (current) drug therapy; Z79.82 Long term (current) use of aspirin; Z79.4 Long term (current) use of insulin; Z99.2 Dependence on renal dialysis; Z95.5 Presence of coronary angioplasty implant and graft; Z87.891 Personal history of nicotine dependence
CPT/HCPCS: 36415; 71045; 80048; 82962; 83880; 84484; 85025; 85610; 85730; 90937; 93005; 96372; 96374; 96375; 99218; 99251; 99285; A4216; G0257; G0378; G0463; J1940; Q5106